=== PATIENT | male | born 1965 | race Two or more races ===

== ENCOUNTER 2025-04-12 19:40 | Emergency (ER) | payer MEDICARE, MEDICAID ==
[~2025-04-12] VITALS: Ht 172.7 cm; Wt 66.0 kg
[2025-04-12 20:10] LABS: CREATININE 1.09 MG/DL (0.60-1.10); TOTAL CARBON DIOXIDE 24.2 MMOL/L (24-32); eCRCL 66 ML/MIN; eGFR 69 ML/MIN
[2025-04-12 20:11] LABS: MEAN PLATELET VOLUME 9.4 FL (7.4-10.4); RED CELL DISTRIBUTION WIDTH 16.3 % (11.5-14.5)
[2025-04-12] MEDS: normal saline 1000ml 1,000 ML IV ONE (20:11)
--- NOTE | 2025-04-12 20:32 | RADIOLOGY REPORT ---
CHEST RADIOGRAPH REASON FOR EXAM: PAIN COMPARISON: None TECHNIQUE: One view of the chest is provided FINDINGS: The cardiomediastinal silhouette is at the upper limits of normal for size. There are surgical changes in the mediastinum. Surgical clips project over the right axilla. There is left apical pleural thickening. There are low inspiratory volumes causing crowding and exaggeration of the pulmonary markings. There is no lobar consolidation. There is no pneumothorax. There are multiple old healed right-sided rib fractures. There is no significant pleural effusion. IMPRESSION: Low inspiratory volumes causing crowding and exaggeration of the pulmonary markings. No lobar consolidation. No pneumothorax. Multiple old healed right-sided rib fractures.
[2025-04-12 21:08] LABS: LEUKOCYTE ESTERASE ,URINE NEGATIVE (Neg); NITRITES, URINE NEGATIVE (Neg); OCCULT BLOOD,URINE NEGATIVE (Neg)
[2025-04-12 21:14] LABS: UA COLLECTION TYPE URINAL
[2025-04-12 21:20] LABS: URINE AMPHETAMINE SCREEN NEGATIVE (Neg); URINE BARBITUATE SCREEN NEGATIVE (Neg); URINE BENZODIAZEPINES SCREEN NEGATIVE (Neg); URINE CANNABINOID SCREEN POSITIVE (Neg); URINE COCAINE SCREEN NEGATIVE (Neg); URINE METHADONE SCREEN NEGATIVE (Neg); URINE OPIATE SCREEN POSITIVE (Neg); URINE PHENCYCLIDINE SCREEN NEGATIVE (Neg)
--- NOTE | 2025-04-12 21:30 | ELECTROCARDIOGRAPH REPORT ---
[facility] Test Date: 2025-04-12 Test Time: 21:27:37 Pat Name: JYOTI DANIELS Department: [facility]- Patient ID: [id number] Room: Gender: M Logistics Planning Manager: LENORA : 1965 Requested By: ESHA MORGAN Order Number: [id number] Reading MD: Measurements Intervals [place] Rate: 98 P: 50 VT: 218 QRS: 51 QRSD: 98 T: -9 QT: 355 QTc: 454 Interpretive Statements Sinus rhythm Prolonged VT interval Inferior infarct, old Baseline wander in lead(s) V6 Please click the below link to view image of tracing.
[2025-04-12] MEDS: morphine 4 MG/ML inj SYRINge IV ONE (21:46)
[2025-04-12 23:15] LABS: ETHANOL < 10 MG/DL (<10)
[2025-04-12] MEDS: ketorolac trometh 30MG/ML vial 30 MG/ML VIAL IV ONE (23:23)
[2025-04-13] MEDS: diazepam inj 5 MG/ML inj. IV ONE (01:34)
[2025-04-13] MEDS: orphenadrine citrate 60mg/2ml inj. IM ONE (03:32)
[2025-04-13 04:26] VITALS: TEMP 98.6
--- NOTE | 2025-04-13 05:39 | Physician Documentation ---
History of Present Illness ~ Chief Complaint: Back Pain Stated Complaint: BODY PAIN Time Seen by MD: 19:44 HPI 59 year old male presents reporting pain all over. He is a poor historian and cannot be more specific. He has a history of multiple similar visits as well as visits for COPD exacerbation. Medication Reconciliation Allergies: Coded Allergies: No Known Allergies (Unverified , 04/12/25) Past Medical History Smoking Status: Never smoker Review of Systems All Other Systems at this time: Reviewed and Negative Physical Exam Physical Exam Vital Signs: RN Vital Signs have been reviewed: Yes, Temperature: 98.6, Source: Oral, Heart Rate: 101, Respiratory Rate: 22, BP: 118/76, Pulse Oximetry: 96, Weight: 66.000 Oxygen Flow Rate: 2.0 Physical Exam HEENT: PERRL, moist oral mucosa, EOMI Pulmonary: No respiratory distress Cardiac: RRR, no murmur, rub or gallop MSK: no deformity Skin: w/d/i, no rash Neuro: alert, nonfocal Psych: moaning and writhing Progress Results/Orders Results/Orders Orders - ESHA MORGAN MD Chest,Single View (04/12/25 20:06) Ipratropium/Albuterol Nebule (Ipratrop/A (04/13/25 05:35) Completed Orders - ESHA MORGAN MD Cbc/Diff (04/12/25 19:45) CMP (04/12/25 19:45) Urinalysis, Cult If Indicated (04/12/25 19:45) Drug Screen, Urine (04/12/25 19:45) Normal Saline 1000ml (0.9% Sodium Chlori (04/12/25 19:45) Chest,Single View (04/12/25 20:06) Hs Troponin I W Calculations (04/12/25 21:21) Electrocardiogram (04/12/25 ) Morphine 4mg/Ml Inj. (Morphine Inj.) (04/12/25 21:40) Lorazepam Inj (Ativan Inj) (04/12/25 21:55) Ammonia (04/12/25 22:06) Ethanol (04/12/25 19:47) Ketorolac Trometh 30mg/Ml Vial (Toradol (04/12/25 23:20) Diazepam Inj (Valium Inj) (04/13/25 01:00) Orphenadrine Citrate Inj. (Norflex Inj.) (04/13/25 03:25) Medications Received in ER Medications (Trade) Dose Ordered Sig/Dawson Route PRN Reason Start Time Stop Time Status Last Admin Dose Admin (morphine inj.) 4 mg ONCE ONCE IV 04/12/25 21:40 04/12/25 21:41 DC 04/12/25 21:46 4 MG (Ativan inj) 1 mg ONCE ONCE IV 04/12/25 21:55 04/12/25 21:56 DC 04/12/25 21:59 1 MG (Toradol inj. 30mg/ml) 30 mg ONCE ONCE IV 04/12/25 23:20 04/12/25 23:21 DC 04/12/25 23:23 30 MG (Valium inj) 10 mg ONCE ONCE IV 04/13/25 01:00 04/13/25 01:01 DC 04/13/25 01:34 10 MG (Norflex inj.) 60 mg ONCE ONCE IM 04/13/25 03:25 04/13/25 03:26 DC 04/13/25 03:32 60 MG Vital Signs 04/12/25 04/12/25 04/12/25 04/12/25 19:41 21:06 21:46 21:56 Temp 98.6 98.6 98.6 Pulse 88 100 105 Resp 18 18 22 16 B/P (MAP) 146/78 158/73 (101) 142/123 (129) Pulse Ox 97 94 94 O2 Flow Rate 0 0 0 04/12/25 04/12/25 04/13/25 04/13/25 21:59 23:31 00:31 01:34 Temp 98.6 98.6 Pulse 106 108 Resp 18 22 B/P (MAP) 157/63 (94) 133/78 (96) Pulse Ox 96 95 O2 Flow Rate 0 0 04/13/25 04/13/25 04/13/25 04/13/25 01:43 01:46 01:46 03:05 Temp 98.6 98.6 Pulse 97 92 Resp 22 B/P (MAP) 125/65 (85) 114/60 (78) Pulse Ox 96 95 95 98 O2 Delivery Nasal Cannula* O2 Flow Rate 0 2.0 2 2.0 FiO2 N/A N/A 04/13/25 04:26 Temp 98.6 Pulse 101 Resp 22 B/P (MAP) 118/76 (90) Pulse Ox 96 O2 Flow Rate 2.0 FiO2 N/A Laboratory Tests Test 04/12/25 19:47 04/12/25 20:52 04/12/25 22:38 White Blood Count 11.2 H Red Blood Count 3.90 L Hemoglobin 10.4 L Hematocrit 31.3 L Mean Corpuscular Volume 80.4 Mean Corpuscular Hemoglobin 26.6 L Mean Corpuscular Hemoglobin Concent 33.1 Red Cell Distribution Width 16.3 H Platelet Count 222 Mean Platelet Volume 9.4 Neutrophils (%) (Auto) 76.6 H Lymphocytes (%) (Auto) 15.4 L Monocytes (%) (Auto) 6.9 Eosinophils (%) (Auto) 0.4 Basophils (%) (Auto) 0.7 Neutrophils # (Auto) 8.5 H Lymphocytes # (Auto) 1.7 Monocytes # (Auto) 0.8 Eosinophils # (Auto) 0.0 Basophils # (Auto) 0.1 CBC Comment Sodium Level 131 L Potassium Level 4.8 Chloride Level 97 L Carbon Dioxide Level 24.2 Anion Gap 10 Blood Urea Nitrogen 21 H Creatinine 1.09 Estimated GFR/1.73 m2 69 BUN/Creatinine Ratio 19.3 Glucose Level 173 H Calcium Level 7.9 L Total Bilirubin 0.3 Aspartate Amino Transf (AST/SGOT) 25 Alanine Aminotransferase (ALT/SGPT) 25 Alkaline Phosphatase 97 Troponin I High Sensitivity 23 Total Protein 6.8 Albumin 3.0 L Globulin 3.8 Albumin/Globulin Ratio 0.8 L Chemistry Comments Ethyl Alcohol Level < 10 Urine Specimen Description Urinal Urine Color Yellow Urine Clarity Clear Urine pH 6.0 Urine Specific [place] 1.010 Urine Protein Negative Urine Glucose (UA) Negative Urine Ketones Negative Urine Occult Blood Negative Urine Nitrite Negative Urine Bilirubin Negative Urine Urobilinogen 0.2 Urine Leukocyte Esterase Negative Urine Culture Indicated Not ind Volume Urine Centrifuged 10 ml Urine Comment Urine Opiates Screen Positive Urine Methadone Screen Negative Urine Fentanyl Screen Negative Urine Barbiturates Screen Negative Urine Phencyclidine Screen Negative Urine Amphetamines Screen Negative Urine Benzodiazepines Screen Negative Urine Cocaine Screen Negative Urine Cannabinoids Screen Positive Drug Screen Comment Ammonia < 10 L Medical Decision Making Additional information obtaine: N/A Findings 59 year old male presents with vague complaints of pain. Provided pain medication, workup was unremarkable. Observed for many hours, will discharge aft er breathing treatment. Differential Dx:Considerations: Other Differential Diagnosis Ddx = ACS/IN, back pain, dissection, PE, PNA, chronic pain Departure Disposition: HOME / SELF CARE / HOMELESS Impression: Primary Impression: Chronic back pain Condition: Stable Discharge Instructions: Chronic Back Pain Referrals: NO PRIMARY CARE PROVIDER (PCP) Education Educated: Patient Educated regarding: diagnosis, treatment, prognosis, need for follow up Signature Scribe Signature: . Attestation: . ESHA MORGAN MD Apr 13, 2025 05:39
[2025-04-13] MEDS: ipratropium/albuterol 3ml nebule NEB PRN (05:59)
[2025-04-13 06:02] VITALS: PULSE 74; RESP 16; O2SAT 99
[2025-04-13 06:06] VITALS: PULSE 65; RESP 16; O2SAT 100
[2025-04-13 06:46] VITALS: BP 123/65; PULSE 75; RESP 16; O2SAT 97
== END 2025-04-13 06:46 | disposition home or self-care (01) ==
LOC: EDBD 19:40 → ER 19:40
DX: G89.29 Other chronic pain (principal); M54.9 Dorsalgia, unspecified; J44.9 Chronic obstructive pulmonary disease, unspecified
CPT/HCPCS: 36415; 71045; 80053; 80305; 81003; 82140; 84484; 85025; 93005; 94640; 96361; 96372; 96374; 96375; 99285; A4615; G0480; J1885; J2060; J2270; J2360; J3360; J7030; 80320